=== PATIENT | female | born 1950 | race Caucasian/White ===

== ENCOUNTER → 2019-04-20 12:56 | Outpatient (CLI) | payer MEDICARE, OTHER, SELFPAY ==
--- NOTE | ~2019-04-20 | MM_ITS ---
EXAMINATION: MM screening reyna BI w emil HISTORY: Screening mammogram TECHNIQUE: Craniocaudal and mediolateral oblique 3-D tomosynthesis images were obtained and synthetic 2-D images were generated. CAD analysis was submitted and interpreted. COMPARISON: 04/13/2018, 04/11/2017, 03/31/2016 bilateral digital screening mammogram examinations BREAST PARENCHYMAL COMPOSITION: The breasts are heterogeneously dense, which may obscure small masses . FINDINGS: There is no evidence of suspicious mass, calcification, or architectural distortion to sugg est malignancy in either breast. There has been no suspicious interval change. IMPRESSION: 1. No mammographic evidence of malignancy. 2. Recommend routine screening mammography in one year. BI-RADS Category 1: Negative Reviewed, dictated and finalized at location A. ITURE DUSTER
--- NOTE | ~2019-04-20 | DEXA_ITS ---
Bone Density Report Name: Megha Humphreys Age: 68 Sex: Female Ethnicity: White Date of : 1950 Indication: postmenopausal; screening for osteoporosis; hysterectomy; Referring Provider: Iliana Cedeño Study: Bone densitometry was performed. Exam Date: April 20, 2019 Accession number: [id number] Bone Density: Region BMD T-score Z-score Classification AP Spine (L1-L4) 0.943 -0.9 1.0 Normal Femoral Neck (Left) 0.832 -0.2 1.5 Normal Total Hip (Left) 0.909 -0.3 1.1 Normal Femoral Neck (Right) 0.788 -0.5 1.1 Normal Total Hip (Right) 0.896 -0.4 1.0 Normal Total Hip Mean 0.903 -0.4 1.1 Normal World Health Organization criteria for BMD impression classify patients as: Normal (T-score at or above -1.0), Osteopenia (T-score between -1.0 and -2.5), or Osteoporosis (T-score at or below -2.5). 10-year Fracture Risk: FRAX not reported because: All T-scores for Spine Total, Hip Total, Femoral Neck at or above -1.0 Clinical Information Provided by Patient: Has the following medical conditions: Hysterectomy Patient maximum height was 63.0 Menopause Age: 40 Drinks caffeinated beverages Onset of menses at age 17 Number of children 2 Impression: The patient has normal bone mass. Discussion: BONE DENSITY IS ABOVE THE MINIMUM DESIRABLE LEVEL AT ALL SKELETAL SITES TESTED. This patient?s bone mineral density is above the minimum desirable level (T-score -1.0 or better) at all sites measured. The patient should follow a healthful lifestyle (good nutrition with adequate calcium and vitamin D, and appropriate weight-bearing exercise). Follow-Up: Consider repeating this study in 5 years or sooner if there is some new clinical indication. Reported by: ABILIO on 04/20/2019 1:43:00 PM. Reviewed, dictated and finalized at location AElin AGRAWAL
== END ==
PROVIDERS: PCP Family Medicine; Visit Provider Physician Assistant
DX: Z12.31 Encounter for screening mammogram for malignant neoplasm of breast (principal); M81.0 Age-related osteoporosis without current pathological fracture
CPT/HCPCS: 77063; 77067; 77080

== ENCOUNTER → 2020-04-21 10:19 | Outpatient (CLI) | payer MEDICARE, OTHER, SELFPAY ==
--- NOTE | ~2020-04-21 | MM_ITS ---
EXAMINATION: MM screening reyna BI w emil HISTORY: Screening mammogram TECHNIQUE: Craniocaudal and mediolateral oblique 3-D tomosynthesis images were obtained and synthetic 2-D images were generated. CAD analysis was submitted and interpreted. COMPARISON: 04/20/2019, 04/13/2018, 04/11/2017, 04/01/2016 bilateral digital screening mammogram examinati ons BREAST PARENCHYMAL COMPOSITION: The breasts are heterogeneously dense, which may obscure small masses . FINDINGS: There is no evidence of suspicious mass, calcification, or architectural distortion to sugg est malignancy in either breast. There has been no suspicious interval change. IMPRESSION: 1. No mammographic evidence of malignancy. 2. Recommend routine screening mammography in one year. BI-RADS Category 1: Negative Reviewed, dictated and finalized at location A. IT REVIEW ASSISTANT
== END ==
PROVIDERS: PCP Family Medicine; Visit Provider Family Medicine
DX: Z12.31 Encounter for screening mammogram for malignant neoplasm of breast (principal)
CPT/HCPCS: 77063; 77067

== ENCOUNTER → 2021-04-24 09:53 | Outpatient (CLI) | payer MEDICARE, SELFPAY ==
--- NOTE | ~2021-04-24 | MM_ITS ---
EXAMINATION: MM screening reyna BI w emil HISTORY: Screening TECHNIQUE: Craniocaudal and mediolateral oblique 3-D tomosynthesis images were obtained and synthetic 2-D images were generated. CAD analysis was submitted and interpreted. COMPARISON: Comparison to multiple prior studies sequentially, with oldest reviewed study dated 02/24. BREAST PARENCHYMAL COMPOSITION: The breasts are heterogeneously dense, which may obscure small masses . FINDINGS: Developing bilateral breast asymmetries. Possible architectural distortion of the left edi st. There are no suspicious calcifications. IMPRESSION: 1. Developing bilateral breast asymmetries with possible architectural distortion of the left breast. 2. Additional mammographic views and possible breast ultrasound are recommended. BI-RADS Category 0: Incomplete: Needs additional imaging evaluation. Reviewed, dictated and finalized at location A. TROLOGIST IMPRESSION: 1. Developing bilateral breast asymmetries with possible architectural distorti on of the left breast. 2. Additional mammographic views and possible breast ultrasound are recommended . BI-RADS Category 0: Incomplete: Needs additional imaging evaluation.
== END ==
PROVIDERS: PCP Family Medicine; Visit Provider Family Medicine
DX: Z12.31 Encounter for screening mammogram for malignant neoplasm of breast (principal); R92.8 Other abnormal and inconclusive findings on diagnostic imaging of breast
CPT/HCPCS: 77063; 77067

== ENCOUNTER → 2021-05-05 14:12 | Outpatient (CLI) | payer MEDICARE, OTHER, SELFPAY ==
--- NOTE | ~2021-05-05 | MMUS_ITS ---
EXAMINATION: MM diagnostic reyna BI w emil, US breast BI complete HISTORY: Developing bilateral mammographic asymmetries and left architectural distortion suggested on 04/24/2021 bilateral screening mammogram TECHNIQUE: Additional 3-D tomosynthesis images of both breasts were performed and synthetic 2-D image s were generated. CAD analysis was submitted and interpreted. High resolution bilateral complete edi st ultrasound including all four quadrants and subareolar areas was performed. COMPARISON: 04/24/2021, 04/21/2020, 04/20/2019, 04/13/2018 bilateral screening mammogram examinations FINDINGS: MAMMOGRAPHIC FINDINGS: There is suggestion of a 5 mm mass in the upper outer quadrant of the right breast on full field ML v iew (ML tomosynthesis ). Chronic stable circumscribed intramammary lymph node in the very posterior upper left breast on MLO v iew. No suspicious mass or architectural distortion, malignant calcification, skin thickening or retractio n or other significant new finding of either breast is noted otherwise. BILATERAL COMPLETE BREAST ULTRASOUND: Right breast: 10:00 7 cm from nipple: 2.5 x 2.7 mm irregular hypoechoic mass with internal vascularity on color fl ow imaging, suspicious for small malignancy. Ultrasound guided biopsy is recommended. Left breast: No suspicious mass or shadowing is detected. IMPRESSION: 1. Right breast 10:00 suspicious 2.7 mm mass. 2. Ultrasound guided biopsy is recommended. BI-RADS category 4, suspicious findings. Dr. Kirkpatrick telephoned Dr. Messer the report and ultrasound-guided biopsy recommendation on 05/05/2021 a t 1554 hours. Reviewed, dictated and finalized at location A. IMPRESSION: 1. Right breast 10:00 suspicious 2.7 mm mass. 2. Ultrasound guided biopsy is recommended. BI-RADS category 4, suspicious findings. Dr. Kirkpatrick telephoned Dr. Messer the report and ultrasound-guided biopsy recomme ndation on 05/05/2021 at 1554 hours.
== END ==
PROVIDERS: PCP Family Medicine; Visit Provider Family Medicine
DX: R92.8 Other abnormal and inconclusive findings on diagnostic imaging of breast (principal)
CPT/HCPCS: 76641; 77062; 77066; G0279

== ENCOUNTER 2021-05-15 08:55 | Outpatient (CLI) | payer MEDICARE, OTHER, SELFPAY ==
--- NOTE | ~2021-05-15 | MMUS_ITS ---
EXAMINATION: US breast biopsy RT w image, MM post biopsy invasive RT DATE: 05/15/2021 10:41 (accession [id number]), 05/15/2021 10:36 (accession [id number]) INDICATION: Indeterminate right breast mass. Ultrasound-guided core biopsy is requested to evaluate f or malignancy. TECHNIQUE AND FINDINGS: The risks and potential benefits of the procedure were discussed with the patient including bleeding and infection. A time out was performed. The skin of the right breast was prepared and draped in usua l sterile fashion. 1% lidocaine was used for superficial anesthesia. 1% lidocaine with epinephrine wa s used for deep anesthesia. A vacuum-assisted biopsy gun needle was advanced through to the outer edge of the region of interest from a lateral approach utilizing sonographic guidance. A total of three tissue core samples were obt ained through the lesion. A tissue marker clip was then placed at the biopsy site. Hemostasis was ach ieved. A sterile bandage was applied. The patient tolerated procedure well and there was no evidence of immediate complication. The patient was given verbal instructions to return to the Emergency Department in the event of severe breast pa in or rapid breast enlargement. A three view right breast mammogram was obtained to document tissue m arker clip placement. The marker is visualized on the exaggerated lateral craniocaudal view. IMPRESSION: 1. Successful ultrasound-guided vacuum-assisted biopsy of right breast mass with tissue marker placem ent. Reviewed, dictated and finalized at location A. IMPRESSION: 1. Successful ultrasound-guided vacuum-assisted biopsy of right breast mass wit h tissue marker placement.
== END 2021-05-15 08:56 | disposition home or self-care (01) ==
PROVIDERS: PCP Family Medicine; Visit Provider Family Medicine
DX: R92.8 Other abnormal and inconclusive findings on diagnostic imaging of breast (principal)
CPT/HCPCS: 19083; 88305; A4648

== ENCOUNTER → 2021-06-12 10:03 | Outpatient (CLI) | payer MEDICARE, SELFPAY ==
--- NOTE | ~2021-06-12 | DEXA_ITS ---
Bone Density Report Name: CELIO RUBIO Age: 71 Sex: Female Ethnicity: White Date of : 1950 Indication: postmenopausal; screening for osteoporosis; hysterectomy; Referring Provider: Iliana Cedeño Study: Bone densitometry was performed. Exam Date: June 12, 2021 Accession number: [id number] Bone Density: Region BMD T-score Z-score Classification AP Spine (L1-L4) 0.914 -1.2 0.9 Osteopenia Femoral Neck (Left) 0.804 -0.4 1.4 Normal Total Hip (Left) 0.878 -0.5 1.0 Normal Femoral Neck (Right) 0.790 -0.5 1.3 Normal Total Hip (Right) 0.868 -0.6 0.9 Normal Total Hip Mean 0.873 -0.6 1.0 Normal World Health Organization criteria for BMD impression classify patients as: Normal (T-score at or above -1.0), Osteopenia (T-score between -1.0 and -2.5), or Osteoporosis (T-score at or below -2.5). 10-year Fracture Risk(1): Major Osteoporotic Fracture 7.3% Hip Fracture 0.6% Reported Risk Factors: [place] (), Neck BMD=0.790, BMI=21.7 (1) FRAX(R) Version 3.08. Fracture probability calculated for an untreated patient. Fracture probability may be lower if the patient has received treatment. Previous Exams: Region Exam Age BMD T-score BMD Change BMD Change Date g/cm2 vs Baseline vs Previous AP Spine(L1-L4) 06/12/2021 71 0.914 -1.2 -0.030* -0.030* 04/20/2019 68 0.943 -0.9 Total Hip(Left) 06/12/2021 71 0.878 -0.5 -0.031* -0.031* 04/20/2019 68 0.909 -0.3 Total Hip(Right) 06/12/2021 71 0.868 -0.6 -0.029* -0.029* 04/20/2019 68 0.896 -0.4 *Denotes significance at 95% confidence level, LSC for AP Spine = 0.022 g/cm2, LSC for Total Hip = 0.027 g/cm2 Clinical Information Provided by Patient: Has the following medical conditions: Hysterectomy Patient maximum height was 63.0 Menopause Age: 40 Drinks caffeinated beverages Onset of menses at age 17 Number of children 2 Impression: The patient has low bone mass, based on the Total Spine T-score. The patient has an estimated ten-year risk of hip fracture of 0.6% and an estimated ten-year risk of major fracture of 7.3%, based on the WHO FRAX algorithm. The BMD for the AP Spine(L1-L4) decreased, changing by -0.030 since the last DXA exam. The BMD for the Total Hip(Left) decreased, changing by -0.031 since the last DXA exam. The BMD for the Total Hip(Right) decreased, changing by -0.029 since the last DXA exam. Discussi
== END ==
PROVIDERS: PCP Family Medicine; Visit Provider Physician Assistant
DX: Z78.0 Asymptomatic menopausal state (principal); M85.88 Other specified disorders of bone density and structure, other site
CPT/HCPCS: 77080

== ENCOUNTER 2021-11-05 07:36 | Inpatient (IN) | payer MEDICARE, OTHER, SELFPAY ==
[2021-11-05] VITALS (49 sets, daily range): BP systolic 101–137; BP diastolic 51–69; PULSE 69–90; RESP 14–39; TEMP 36.4–37.1; O2SAT 61–100; BMI 19.1
--- NOTE | 2021-11-05 | ECHO_ITS ---
Patient Info Name: Megha Humphreys Age: 71 years : 1950 Gender: Female Ht: 63 in Wt: 115 lbs BSA: 1.52 m2 HR: 74 bpm BP: 129 / 66 mmHg Heart Rhythm: Sinus Rhythm Technical Quality: Good Exam Date: 11/05/2021 2:31 PM Exam Location: [facility] Exam Room: ICU8 Patient Status: Inpatient Admit Date: 11/05/2021 Staff Ordering Physician: Bradley Nava MD Filler And Trimmer: Bre Oliveira RDCS Attending Provider: Magdaleno Guy MD Exam Type: CA echo doppler color flow Study Info Indications - PE CHF Complete two-dimensional, color flow and Doppler transthoracic echocardiogram is performed. Summary 1. Complete two-dimensional, color flow and Doppler transthoracic echocardiogram is performed. 2. Normal left ventricular size with good contractility of all segments. Mild septal hypertrophy noted. Ejection fraction 65-70%. Grade 2 diastolic dysfunction is present. Mild septal hypertrophy is noted. Global longitudinal strain is-17%, borderline. 3. There is mild mitral valve regurgitation. 4. No pulmonary hypertension, estimated pulmonary arterial systolic pressure is 33 mmHg. 5. Normal sinus rhythm. Left Ventricle Left ventricular chamber dimension is normal. Left ventricular systolic function is normal, estimated at 65-70%. There is no increased left ventricular wall thickness. Left ventricular septal wall motion is normal. The left ventricular diastolic function is normal. Right Ventricle Right ventricular chamber dimension is normal. Right ventricular systolic function is normal. Left Atria Left atrial chamber dimension is normal. Right Atria Right atrial chamber dimension is normal. Aortic Valve The aortic valve is trileaflet. There is no aortic valve sclerosis. There is no aortic valve stenosis. There is trace aortic valve regurgitation. Pulmonic Valve The pulmonic valve is normal. There is no pulmonic valve stenosis. There is trace pulmonic regurgitation. Mitral Valve The mitral valve has normal leaflets. There is no mitral valve stenosis. There is mild mitral valve regurgitation. Tricuspid Valve The tricuspid valve leaflets are normal. There is no significant tricuspid valve stenosis. There is trace tricuspid valve regurgitation. No pulmonary hypertension, estimated pulmonary arterial systolic pressure is 33 mmHg. Pericardium/Pleural The pericardium appears normal. There is no pericardial effusion. Inferior Vena Cava Normal inferior vena cava with >50% collapse upon inspiration consistent with Empty right atrial pressure, 5 mmHg. Aorta The aortic root size at the sinus of Valsalva is normal. The prox ascending aorta size is normal. Left Ventricular Outflow Tract Name Value Normal LVOT 2D LVOT Diameter 2.0 cm LVOT Doppler LVOT Peak Gradient 3 mmHg LVOT Mean Gradient 2 mmHg LVOT VTI 17 cm LVOT VTI/AV VTI Ratio 0.8 LVOT Stroke Volume 53 ml LVOT CO
--- NOTE | ~2021-11-05 | CT_ITS ---
EXAMINATION: CTA chest PE protocol DATE: 11/05/2021 08:47 INDICATION: Dyspnea. TECHNIQUE: Computed tomography angiography (CTA) of the chest was performed with 100 mL Omnipaque-350 intravenous contrast timed to evaluate the pulmonary arteries. Coronal maximum intensity projection 3D-reconstructions were created by the technologist. Automated exposure control and iterative reconst ruction technique were employed. The dose-length product was 179.58 mGy-cm. COMPARISON: None. FINDINGS: There are small pleural effusions, left worse than right. There are airspace and interstiti al opacities and septal thickening involving all lobes with relative sparing of the peripheral lower lobes with architectural distortion. The heart size is normal. No pericardial effusion. There are sma ll pulmonary emboli in right lower lobe. There is a compression fracture of T8 with 1/5 loss of heigh t. IMPRESSION: 1. Small pulmonary emboli in right lower lobe. I called this result to Dr. Thompson. 2. Diffuse lung disease, consistent with pulmonary edema versus pneumonia. 3. Small pleural effusions. Reviewed, dictated and finalized at location A. IMPRESSION: 1. Small pulmonary emboli in right lower lobe. I called this result to Dr. Thompson . 2. Diffuse lung disease, consistent with pulmonary edema versus pneumonia. 3. Small pleural effusions.
--- NOTE | ~2021-11-05 | XR_ITS ---
XR chest ET placement 11/07/2021 12:19 Indication: OG tube insertion Procedure: AP portable chest Comparison: Comparison to multiple prior studies sequentially, with oldest reviewed study dated 11/05. Findings: Endotracheal tube tip 2.7 cm above the philly. NG tube in the stomach. PICC line tip in the SVC. Diffuse bilateral airspace disease, compatible with edema. No pleural effusion or pneumothorax. No acute osseous abnormality. Impression: 1: Persistent diffuse bilateral airspace disease, compatible with edema. Reviewed, dictated and finalized at location A. Impression: 1: Persistent diffuse bilateral airspace disease, compatible with edema.
--- NOTE | ~2021-11-05 | CT_ITS ---
EXAMINATION: CT abdomen pelvis wo con DATE: 11/05/2021 10:58 INDICATION: Recent colectomy, colostomy TECHNIQUE: Computed tomography (CT) of the abdomen and pelvis was performed without intravenous contr ast. (Patient had earlier CT pulmonary scan today with IV contrast material). Automated exposure cont rol and iterative reconstruction technique were employed. Exam dose: 185.57 mGy-cm total exam DLP. COMPARISON: 11/05/2021 CT pulmonary scan FINDINGS: Extensive bilateral pulmonary infiltrates are noted as well as mild to moderate left pleura l effusion, minimal right pleural effusion. Heart size is within normal range. There is trace pericar dial fluid. Small sliding hiatal hernia. Nonspecific approximately 4.7 and 7 mm hypoattenuating lesions of the lateral segment left hepatic l obe, possibly small cyst. The liver is otherwise unremarkable. No gallbladder wall thickening or pericholecystic fluid or fat stranding. No bile duct or pancreatic duct dilatation. No pancreatic mass lesion or calcification. The spleen is absent. Normal morphology of the adrenal glands. No renal mass lesion or urinary tract calculus or hydroureteronephrosis is evident. The urinary bladd er is unremarkable. No bladder wall thickening or intraluminal filling defect. Status post hysterectomy. There is atherosclerotic calcification but normal caliber of the abdominal aorta. No intraperitoneal or retroperitoneal or pelvic mass lesion or adenopathy or ascites is detected. Partial left colectomy. There is a left colostomy. No bowel obstruction or intraperitoneal free air i s evident. No suspicious osteolytic or osteoblastic lesions. IMPRESSION: Partial left colectomy with left colostomy; no bowel obstruction or free air Status post hysterectomy Small sliding hiatal hernia 7 and 4 mm nonspecific small hypoattenuating left lateral segment hepatic lesions, too small to defin itively characterize Extensive bilateral pulmonary infiltrates and bilateral pleural effusions, left greater than right Reviewed, dictated and finalized at Location A. Reviewed, dictated and finalized at location B. IMPRESSION: Partial left colectomy with left colostomy; no bowel obstruction o r free air Status post hysterectomy Small sliding hiatal hernia 7 and 4 mm nonspecific small hypoattenuating left lateral segment hepatic lesio ns, too small to definitively characterize Extensive bilateral pulmonary infiltrates and bilateral pleural effusions, left greater than right
--- NOTE | ~2021-11-05 | XR_ITS ---
XR chest 1V portable DATE: 11/05/2021 09:13 INDICATION: Dyspnea TECHNIQUE: Portable AP chest on 11/05/2021 at 0907 hours COMPARISON: 11/05/2021 CT pulmonary scan FINDINGS: Extensive patchy infiltrates are noted throughout both lungs, which may be due to pulmonary edema and/or pneumonia. Heart size appears normal. The left costophrenic angle is minimally blunted suggesting small left ple ural effusion which is confirmed on CT examination today. Mild bilateral apical capping. No pneumothorax. Diffuse osteopenia. IMPRESSION: Extensive bilateral pulmonary infiltrates which may be due to pulmonary edema and/or pneu monia Reviewed, dictated and finalized at location B. IMPRESSION: Extensive bilateral pulmonary infiltrates which may be due to pulmo nary edema and/or pneumonia
--- NOTE | ~2021-11-05 | US_ITS ---
EXAMINATION: US venous doppler [facility] DATE: 11/05/2021 10:28 INDICATION: Acute pulmonary bladder. TECHNIQUE: Grayscale ultrasound images without and with compression and Doppler ultrasound images of the bilateral lower extremity veins were obtained. COMPARISON: None. FINDINGS: The visualized portions of right common femoral vein, profunda (deep) femoral vein, femoral vein, pop liteal vein, peroneal veins, posterior tibial veins, and greater saphenous vein outflow are patent. The visualized portions of left common femoral vein, profunda femoral vein, popliteal vein, peroneal veins, posterior tibial veins, and greater saphenous vein outflow are patent. There is nonocclusive t hrombus in left femoral vein. IMPRESSION: 1. Deep vein thrombosis involving left femoral vein. Reviewed, dictated and finalized at location A.
--- NOTE | ~2021-11-05 | XR_ITS ---
XR chest 1V portable 11/07/2021 06:03 Indication: Respiratory failure Procedure: AP portable chest Comparison: Comparison to multiple prior studies sequentially, with oldest reviewed study dated 11/05. Findings: Left subclavian PICC line tip in the SVC. There is improving diffuse bilateral airspace dis ease, most likely resolving edema. No significant effusion or pneumothorax. No acute osseous abnormal ity. Impression: 1: Improving diffuse bilateral airspace disease, most likely resolving edema. Reviewed, dictated and finalized at location A. Impression: 1: Improving diffuse bilateral airspace disease, most likely resolving edema.
--- NOTE | ~2021-11-05 | XR_ITS ---
EXAMINATION: XR chest PICC line DATE: 11/06/2021 09:46 INDICATION: Central line placement. TECHNIQUE: A single frontal view of the chest was obtained. COMPARISON: Chest single view at 5:50 AM FINDINGS: There are airspace and interstitial opacities throughout the lungs bilaterally. There is a small left pleural effusion. No pneumothorax. The heart size is normal. A left upper extremity periph erally inserted central venous catheter (PICC) is seen with tip in the superior vena cava. IMPRESSION: 1. Stable diffuse lung disease, consistent with pulmonary edema versus pneumonia versus acute respira tory distress syndrome (ARDS). 2. Stable small left pleural effusion. Reviewed, dictated and finalized at location A. IMPRESSION: 1. Stable diffuse lung disease, consistent with pulmonary edema versus pneumoni a versus acute respiratory distress syndrome (ARDS). 2. Stable small left pleural effusion.
--- NOTE | ~2021-11-05 | XR_ITS ---
XR abdomen OG/feed tube insert INDICATION: Evaluate OG tube position. TECHNIQUE: Limited KUB perform for evaluating OG tube . COMPARISON: No prior studies for comparison. FINDINGS: OG tube tip in the stomach. Visualized bowel gas pattern is unremarkable. IMPRESSION: 1: OG tube tip in the stomach. Reviewed, dictated and finalized at location A.
--- NOTE | ~2021-11-05 | XR_ITS ---
EXAMINATION: XR chest 1V portable DATE: 11/06/2021 05:58 INDICATION: Respiratory failure. TECHNIQUE: A single frontal view of the chest was obtained. COMPARISON: Chest single view 11/05/2021 FINDINGS: There are airspace and interstitial opacities in all lung zones bilaterally. There is a sma ll left pleural effusion. No pneumothorax. The heart size is normal. IMPRESSION: 1. Stable diffuse lung disease, consistent with pulmonary edema versus pneumonia versus acute respira tory distress syndrome (ARDS). 2. Stable small left pleural effusion. Reviewed, dictated and finalized at location A. IMPRESSION: 1. Stable diffuse lung disease, consistent with pulmonary edema versus pneumoni a versus acute respiratory distress syndrome (ARDS). 2. Stable small left pleural effusion.
--- NOTE | 2021-11-05 07:43 | ECG_ITS ---
Measurements Intervals [place] Rate: 77 P: 27 MT: 122 QRS: 25 QRSD: 71 T: 39 QT: 383 QTc: 435 Interpretive Statements SINUS RHYTHM VENTRICULAR PREMATURE COMPLEX BASELINE ARTIFACT- V1 BORDERLINE ECG NO PREVIOUS ECG AVAILABLE FOR COMPARISON Electronically Signed On 11-05-2021 8:03:46 CDT by Jsoe Guthrie D.O.
--- NOTE | 2021-11-05 07:49 | PC.NURSE ---
RT at bedside to place patient on BIPAP>
[2021-11-05 08:02] LABS: Basophils Percent Auto 0.4 % (0.2-1.2); Hematocrit 30.1 % (37.0-47.0); Hemoglobin 9.6 g/dL (12.0-15.0); Immature Granulocyte Percent A 2.1 % (0-0.5); Lymphocytes Absolute Auto 0.39 K/mm3 (0.9-3.2); Mean Corpuscular HGB Conc 31.9 g/dl (32-36); Mean Corpuscular Hemoglobin 32.1 pg (26-34); Mean Corpuscular Volume 100.7 fl (80-100); Monocytes Absolute Auto 0.1 K/mm3 (0.1-0.6); Monocytes Percent Auto 1.4 % (2.6-8.5); Neutrophils Absolute Auto 4.3 K/mm3 (1.3-6.7); Neutrophils Percent Auto 88.1 % (45.5-73.1); Nucleated Red Blood Cells Absolute Auto 0.3 K/mm3 (0.0-0.012); Nucleated Red Blood Cells Perc 6.8 % (0.0-0.2); Platelet Count Result 246 k/mm3 (150-375); Red Blood Count 2.99 M/mm3 (4.2-5.4); Red Cell Distribution Width 19.6 % (11.5-14.5); White Blood Count 4.9 K/mm3 (4.5-10.0)
[2021-11-05 08:03] LABS: Base Excess ABG -3.3 mEq/l (+/-2.0); Fractional Inspired Oxygen 80 %; HCO3 ABG 19.1 mEq/l (22.0-26.0); Oxygen Saturation ABG 98.4 % (95.0-100.0); Oxyhemoglobin 96.8 % THb (90.0-100.0); PCO2 ABG 25.6 mmHg (35.0-45.0); PO2 ABG 108.5 mmHg (80.0-100.0); PO2 FiO2 Ratio Arterial Blood 1.36 %; Total Hemoglobin 9.4 g/dL (12.0-18.0)
[2021-11-05 08:04] LABS: Device NON-INVASIVE VENT; Modified Allen's Test Pass; Site Drawn RIGHT RADIAL
[2021-11-05 08:05] LABS: Non-Invasive Expiratory Pressure 5 CMH2O; Non-Invasive Inspiratory Pressure 10 CMH2O; Non-Invasive Vent Rate 18 /MIN
[2021-11-05 08:15] LABS: Alanine Aminotransferase 28 U/L (6-35); Albumin Level 2.7 g/dL (3.5-5.1); Alkaline Phosphatase 82 U/L (38-126); Anion Gap 10 mmol/L (8-16); Aspartate Amino Transferase 38 U/L (14-36); Bilirubin,Total 0.2 mg/dL (0.2-1.3); Blood Urea Nitrogen 27 mg/dL (7-17); Calcium 7.2 mg/dL (8.4-10.2); Carbon Dioxide 23 mmol/L (22-30); Chloride 104 mmol/L (98-107); Estimated CRCL calculation 42 ml/min; Estimated Glomerular Filt Rate > 60; Glucose 98 mg/dL (65-110); Lipase 87 U/L (23-300); Magnesium 2.4 mg/dL (1.6-2.3); Potassium 4.7 mmol/L (3.4-5.0); Sodium 137 mmol/L (137-145)
[2021-11-05 08:16] LABS: Lactic Acid Reflex 3.1 mmol/L (0.7-2.0)
[2021-11-05 08:20] LABS: INR 1.1; Prothrombin Time 14.2 Seconds (11.1-14.7)
[2021-11-05 08:21] LABS: Partial Thromboplastin Time 26.2 SECONDS (22.3-36.8)
[2021-11-05 08:31] LABS: NT Pro B Type Natriuretic Pept 2920 pg/mL (5-100); Troponin I 0.071 ng/mL (0.000-0.034)
[2021-11-05 08:42] LABS: Anisocytosis 2+ (NORMAL); Band Neutrophils Percent 12 % (0-6); Giant Platelets Present; Hypochromasia 1+ (NORMAL); Large Platelets Present; Lymphocytes Absolute Manual 0.19 K/mm3 (1.1-4.5); Microcytosis 1+ (NORMAL); Monocytes Absolute Manual 0.14 K/mm3 (0.1-0.90); Monocytes Percent Manual 3 % (3-9); Neutrophils Absolute Manual 4.55 K/mm3 (1.7-7.2); Neutrophils Percent Manual 81 % (46-73); Nucleated Red Blood Cells 22 %; Platelet Estimate Adequate (Adequate); Poikilocytosis 2+ (NORMAL); Total Cells Counted 100
[2021-11-05 08:44] LABS: Schistocytes 1+ (NORMAL)
[2021-11-05 09:18] LABS: Influenza A QL RT-PCR Negative (Negative); Influenza B QL RT-PCR Negative (Negative); SARS-CoV-2 RNA PCR Negative
--- NOTE | 2021-11-05 09:43 | WPDCNINT ---
Assessment and Plan Assessment and plan (1) Acute respiratory failure: Code(s): J96.00 - Acute respiratory failure, unspecified whether with hypoxia or hypercapnia Status: Acute Assessment and Plan: Acute Respiratory failure which appears to be multifactorial with complicated recent history It appears patient has PJP pneumonia which was diagnosed on her hospitalization at [facility] Her BAL also grew CMV and HSV She has a small PE on her CT scan Her clinical picture suggests congestive heart failure with elevated BNP, edema in light, orthopnea She may also have another bacterial infection Patient is currently on BiPAP 10/5 and FiO2 has been weaned down to 50%. I have reviewed CT scan, ABG I requested ER physician to to attempt to transfer patient to [facility] due to her recent complicated history and multiple admissions at that hospital. In case patient is not transferred I will admit her to ICU Blood cultures have been sent procalcitonin level is pending Empiric vancomycin and cefepime Continue Bactrim for PJP pneumonia and will be switched to IV Continue HSV and CMV treatment with valacyclovir IV Consult pulmonary. We do not have infectious disease consultation available here at [facility] IV methylprednisolone Bronchodilators If her respiratory status worsened patient may need intubation mechanical ventilation Lovenox subQ for PE Patient was given Lasix IV does and will be repeated later in the day (2) Pneumonia: Code(s): J18.9 - Pneumonia, unspecified organism Status: Acute (3) Pulmonary edema: Code(s): J81.1 - Chronic pulmonary edema Status: Acute Assessment and Plan: See above (4) Pulmonary embolism: Code(s): I26.99 - Other pulmonary embolism without acute cor pulmonale Status: Acute Assessment and Plan: She has a small PE. Lower extremity Dopplers ordered and preliminary suggests that there may be DVT in the left leg Patient is already on anticoagulation so I am not sure if patient was already diagnosed with DVT at the other hospital Switched to Lovenox subQ Check echocardiogram Lower extremity Dopplers were done and pending (5) Pneumocystis jiroveci pneumonia: Code(s): B59 - Pneumocystosis Status: Acute Assessment and Plan: See above (6) Elevated troponin: Code(s): R77.8 - Other specified abnormalities of plasma proteins Status: Acute Assessment and Plan: Patient has elevated troponin denies any chest pain and EKG does not show any ST elevation This is likely type 2 non STEMI from her respiratory failure, PEand infection Monitor serial troponin She is already anticoagulated. 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 Still has open incision under dressing. denies any purulent discharge from incision at this time. Will obtain CT abdomen pelvis (11) Diabetes mellitus: Code(s): E11.9 - Type 2 diabetes mellitus without complications Status: Acute Assessment and Plan: Patient and were unaware that she has diabetes low patient is on insulin at home as per her med list. Start sliding scale at this time She is NPO Plan DVT prophylaxis -on therapeutic Lovenox Stress ulcer prophylaxis -at PPI Nutrition -
[2021-11-05] MEDS: FUROSEMIDE INJ 40 MG/4 ML VIAL IV PUSH ×2 (09:52→15:40)
[2021-11-05 10:14] LABS: Appearance Urine Clear (Clear); Bilirubin Urine Negative (Negative); Blood Urine Negative (Negative); Color Urine Yellow (Yellow); Glucose Urine UA Negative (Negative); Ketones Urine Negative (Negative); Leukocyte Esterase Ur Negative LEU/UL (Negative); Nitrate Urine Negative (Negative); Protein Urine Negative (Negative); Urobilinogen Urine 0.2 mg/dL (<2.0); pH Urine 7.5 (5.0-9.0)
[2021-11-05 10:23] LABS: Add Urine Microscopic? NO
[2021-11-05] MEDS: ENOXAPARIN 60 MG/0.6 ML SYRINGE 50 MG SUB-Q ×2 (10:23→20:38)
--- NOTE | 2021-11-05 10:27 | ED.GENADULT ---
HPI - General Adult General Chief complaint: Shortness of Breath/Dyspnea Stated complaint: SOB, weakness Time Seen by Provider: 11/05/21 07:39 History of Present Illness HPI narrative: This is a 71-year-old female presenting ED with shortness of breath. Patient has had a complicated clinical course over the last 2 months. on August 02 she had diverticulitis that resulted in a colectomy with colostomy bag. Since then she has been in and out of the hospital. Most recently she was discharged from [facility] on Tuesday with a diagnosis of pneumonia. Since then she has not been doing well at home. She has been having increasing shortness of breath and lower extremity edema. Related Data Home Medications Medication Instructions Recorded Confirmed alprazolam 0.25 mg tablet 0.25 mg PO DAILY PRN Anxiety 11/05/21 11/05/21 aspirin 81 mg capsule 81 mg PO DAILY 11/05/21 11/05/21 calcium carbonate 500 mg-vitamin 1 tablet PO DAILY 11/05/21 11/05/21 D3 5 mcg (200 unit) tablet escitalopram oxalate 10 mg tablet 10 mg PO DAILY 11/05/21 11/05/21 ferrous sulfate 325 mg (65 mg 325 mg PO DAILY 11/05/21 11/05/21 iron) tablet (FeroSul) folic acid 1 mg tablet 1 mg PO DAILY 11/05/21 11/05/21 furosemide 20 mg tablet 20 mg PO DAILY 11/05/21 11/05/21 insulin glargine-yfgn 100 unit/mL 7 unit subcut HS 11/05/21 11/05/21 (3 mL) subcutaneous pen (Semglee (insulin glargine-yfgn) Pen) magnesium oxide 400 mg (241.3 mg 400 mg PO BID 11/05/21 11/05/21 magnesium) tablet metformin 500 mg tablet 1,000 mg PO BID 11/05/21 11/05/21 metoprolol succinate 25 mg 12.5 mg PO DAILY 11/05/21 11/05/21 tablet,extended release 24 hr pantoprazole 40 mg tablet,delayed 40 mg PO QAM 11/05/21 11/05/21 release potassium chloride 10 mEq 10 meq PO DAILY 11/05/21 11/05/21 capsule,extended release prednisone 10 mg tablet 35 mg PO DAILY 11/05/21 11/05/21 ramelteon 8 mg tablet 8 mg PO HS PRN Insomnia 11/05/21 11/05/21 simvastatin 20 mg tablet 20 mg PO HS 11/05/21 11/05/21 sulfamethoxazole 800 2 tablet PO TID 11/05/21 11/05/21 mg-trimethoprim 160 mg tablet timolol 0.5 % eye drops 1 drp EACH EYE BID 11/05/21 11/05/21 valganciclovir 450 mg tablet 900 mg PO BID 11/05/21 11/05/21 Allergies Allergy/AdvReac Type Severity Reaction Status Date / Time No Known Allergies Allergy Unverified 09/25/18 10:59 Review of Systems Review of Systems: CONSTITUTIONAL: Denies night sweats. EYES: No eye pain ENT: Denies rhinorrhea CARDIOVASCULAR: Denies palpitations RESPIRATORY: Denies hemoptysis GASTROINTESTINAL: Denies hematemesis GENITOURINARY: Denies hematuria. SKIN: Denies rash MUSCULOSKELETAL: Denies myalgia. NEUROLOGIC: Denies weakness. PSYCHIATRIC: Denies delusions [facility] Past Medical History Medical History (Updated 11/05/21 @ 15:19 by Chintan Thompson MD) Blindness of left eye CMV infection Colostomy in place Diabetes mellitus Diverticulitis HSV (herpes simplex virus) infection Pneumocystis jiroveci pneumonia Stroke Surgical History Surgical History (Updated 11/05/21 @ 10:47 by Bradley Nava MD) H/O colectomy Family History Family History Sibling Non-Hodgkin lymphoma Mother Diabetes mellitus Father Colon cancer Social History Social History Social History: Patient denies smoking, drinks alcohol occasional, denies any drug use. 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 EYES: PERRLA/EOMI, NOSE: Normal no drainage NECK: Supple, Trachea midline RESPIRATORY: tachypneic, scattered rhonchi, using accessory muscles CARDIOVASCULAR: S1S2 appreciated, tachycardic, lower extremity edema ABDOMINAL: Soft, nontender, nondistended, MUSCULOSKELETAl: No obvious deformities NEURO: Alert. Moving 4/4 extremities
--- NOTE | 2021-11-05 10:30 | PC.NURSE ---
Snowboarding Instructor at bedside to assess pt.
--- NOTE | 2021-11-05 10:46 | PC.NURSE ---
Patient off unit to CT.
[2021-11-05 10:58] LABS: Reflex Lactic Acid Yes or No Add Lactic
--- NOTE | 2021-11-05 11:10 | PC.NURSE ---
Pharmacy contacted for JOSELITO Min.
--- NOTE | 2021-11-05 11:26 | PC.NURSE ---
Patient report given to WILLY Quispe. All questions answered and care of patient transferred.
--- NOTE | 2021-11-05 12:50 | ADMGEN ---
This patient, Megha Humphreys, was admitted to Intensive Care Unit-8. Patient/family oriented to hospital policies and general routines including ID bracelet, bed and alarms, visiting hours, pain management, procedures, bathroom and other care routines, personal items, smoking policy, room service/diet, and visiting hours. Information on how to activate the Rapid Response Team has been discussed. Patient/Family are encouraged to report perceived risks to care and to ask questions if they do not understand what they are told or what they should do.
[2021-11-05] MEDS: methylPREDNISolone SOD SUCC 40 MG VIAL IV PUSH ×2 (13:09→20:37)
[2021-11-05 13:15] LABS: Glucose Point of Care 128 mg/dl (65-105)
[2021-11-05 13:40] LABS: Lactic Acid 2.6 mmol/L (0.7-2.0)
[2021-11-05 14:15] LABS: Troponin I 0.075 ng/mL (0.000-0.034)
[2021-11-05] MEDS: IPRATROPIUM BR 0.02% INH SOLN 0.5 MG/2.5 ML VIAL INHALATION ×2 (14:49→20:02)
[2021-11-05] MEDS: ALBUTEROL SULFATE NEB 2.5 MG/3 ML INH INHALATION ×2 (14:49→20:02)
--- NOTE | 2021-11-05 15:16 | PM.IMHP ---
H&P: HPI History of Present Illness Date/Time: 11/05/21 15:16 Chief Complaint: Shortness of breath Narrative: This is a 71-year-old female patient who was just discharged from [facility] on Tuesday and was diagnosed with pneumonia. The patient had a complicated clinical course over the last 2 months. On she had a diverticulitis required a colectomy with a colostomy bag. She has been in and out of the hospital since then. The patient has been having lower extremity edema and shortness of breath since she was discharged from [facility] Tuesday. She was recently diagnosed with PjP pneumonia she also has a small PE on her CT scan. 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 She continues with treatment. she was placed on a BiPAP in the emergency room with 10/5 and FiO2 was weaned down to 50%. However the patient became nauseated and it was felt that the patient could possibly vomit so she was placed on high-flow nasal cannula Airvo and appears to be doing well with it. When I went to examine her the patient's O2 saturations were down in the 80s and I did not want her to exert herself. The patient's O2 saturations quickly went up to the 90s when she was placed on Airvo. Most of information was obtained from her records. The patient is in ICU awaiting bed transfer to [facility]. Her H&H is 9.6 and 30.1. MCV is high at 10.7. ABGs pH was 7.490. CO2 was 25.6 O2 was 108.5. Her blood glucose is 128. Lactic initially was 3.1 and came down to 2.6. Troponin was 0.07 and repeat was 0.075. BNP 2920. The patient was started on subcu Lovenox, nebulizer treatments, Solu-Medrol, cefepime, vancomycin and Bactrim. She was also given IV Lasix once. Venous Doppler was read as deep vein thrombosis involving left femoral vein. Abdominal pelvis CT was read as the following?Partial left colectomy with left colostomy; no bowel obstruction or free air Status post hysterectomy Small sliding hiatal hernia 7 and 4 mm nonspecific small hypoattenuating left lateral segment hepatic lesions, too small to definitively characterize Extensive bilateral pulmonary infiltrates and bilateral pleural effusions, left greater than right. Chest x-ray was read as extensive bilateral pulmonary infiltrates which may be due to pulmonary edema and/or pneumonia. Chest CTA was read as the following1. Small pulmonary emboli in right lower lobe. I called this result to Dr. Thompson. 2. Diffuse lung disease, consistent with pulmonary edema versus pneumonia. 3. Small pleural effusions. The patient is being admitted to inpatient status to ICU on the date of service of 11/05/2021. Review of Systems Review of Systems: See HPI All systems reviewed & are unremarkable except as noted in HPI and below Constitutional: Constitutional: Reports as per HPI and Reports no additional constitutional complaints Eyes: Eyes: Reports as per HPI and Reports no additional eye complaints ENT: Reports system reviewed and no additional complaints, except as documented and Reports Normal hearing present Cardiovascular: Cardiovascular: Reports no additional cardiovascular complaints Respiratory: Respiratory: Reports no additional respiratory complaints and Reports no additional respiratory complaints Gastrointestinal: Gastrointestinal: Reports as per HPI and Reports no additional gastrointestinal complaints Musculoskeletal: Musculoskeletal: Reports no additional musculoskeletal complaints Integumentary/Breasts: Skin/Breast: Reports system reviewed and no additional complaints, except as docu and Reports as per HPI Neurologic: Reports system reviewed and no additional complaints, except as documented, Reports as per HPI and Reports Normal hearing present Psychiatric: Psychiatric: Reports no additional psychiatric complaints and Reports as per HPI Endocrine: Endocrine: Reports no additional endocrine complaints Hematologic/Lymphatic: Hematologic/Lymphatic:
--- NOTE | 2021-11-05 15:34 | PHAR ---
PT'S HOME MED VALCYTE 450 MG (VALGANCICLOVIR) TABS VERIFIED BY PHARMACY
[2021-11-05 15:40] LABS: Glucose Point of Care 156 mg/dl (65-105)
[2021-11-05 15:46] LABS: Procalcitonin 0.3 ng/mL
[2021-11-05] MEDS: MAGNESIUM OXIDE 400 MG TABLET PO (16:44)
[2021-11-05 18:06] LABS: Anion Gap 10 mmol/L (8-16); Blood Urea Nitrogen 27 mg/dL (7-17); Calcium 7.3 mg/dL (8.4-10.2); Carbon Dioxide 26 mmol/L (22-30); Chloride 98 mmol/L (98-107); Estimated CRCL calculation 36 ml/min; Estimated Glomerular Filt Rate 55; Glucose 144 mg/dL (65-110); Potassium 4.4 mmol/L (3.4-5.0); Sodium 134 mmol/L (137-145)
[2021-11-05] MEDS: ACETAMINOPHEN 325 MG TABLET 650 MG PO (18:15)
[2021-11-05 18:27] LABS: Troponin I 0.067 ng/mL (0.000-0.034)
[2021-11-05] MEDS: TIMOLOL MALEATE 0.5% OP SOLN 5 ML BOTTLE 1 DROP EACH EYE (20:38)
[2021-11-05] MEDS: INSULIN GLARGINE (*BKC) 100 UNITS/ML 7 UNITS SUB-Q (20:50)
[2021-11-05 20:54] LABS: Glucose Point of Care 209 mg/dl (65-105)
[2021-11-06] VITALS (26 sets, daily range): BP systolic 105–139; BP diastolic 56–84; PULSE 69–102; RESP 16–29; TEMP 36.4–37.1; O2SAT 90–100; BMI 19.5
[2021-11-06 00:03] LABS: Glucose Point of Care 153 mg/dl (65-105)
[2021-11-06] MEDS: ALBUTEROL SULFATE NEB 2.5 MG/3 ML INH INHALATION ×4 (02:05→20:10)
[2021-11-06] MEDS: IPRATROPIUM BR 0.02% INH SOLN 0.5 MG/2.5 ML VIAL INHALATION ×4 (02:05→20:10)
[2021-11-06] MEDS: ONDANSETRON INJ 4 MG/2 ML VIAL IV PUSH (02:51)
[2021-11-06 04:28] LABS: Basophils Percent Auto 0.5 % (0.2-1.2); Hematocrit 27.7 % (37.0-47.0); Hemoglobin 8.8 g/dL (12.0-15.0); Immature Granulocyte Absolute 0.08 K/mm3 (0.00-0.031); Lymphocytes Absolute Auto 0.33 K/mm3 (0.9-3.2); Lymphocytes Percent Auto 4.3 % (18.3-44.2); Mean Corpuscular HGB Conc 31.8 g/dl (32-36); Mean Corpuscular Hemoglobin 31.3 pg (26-34); Mean Corpuscular Volume 98.6 fl (80-100); Mean Platelet Volume 12.1 fl (7.4-10.4); Monocytes Percent Auto 0.3 % (2.6-8.5); Neutrophils Absolute Auto 7.2 K/mm3 (1.3-6.7); Neutrophils Percent Auto 93.9 % (45.5-73.1); Nucleated Red Blood Cells Absolute Auto 0.3 K/mm3 (0.0-0.012); Nucleated Red Blood Cells Perc 3.6 % (0.0-0.2); Platelet Count Result 237 k/mm3 (150-375); Red Blood Count 2.81 M/mm3 (4.2-5.4); Red Cell Distribution Width 18.9 % (11.5-14.5); White Blood Count 7.7 K/mm3 (4.5-10.0)
[2021-11-06 04:42] LABS: Alanine Aminotransferase 25 U/L (6-35); Albumin Level 2.4 g/dL (3.5-5.1); Alkaline Phosphatase 71 U/L (38-126); Anion Gap 7 mmol/L (8-16); Aspartate Amino Transferase 34 U/L (14-36); Bilirubin,Total 0.2 mg/dL (0.2-1.3); Blood Urea Nitrogen 24 mg/dL (7-17); Calcium 6.5 mg/dL (8.4-10.2); Carbon Dioxide 25 mmol/L (22-30); Chloride 100 mmol/L (98-107); Estimated CRCL calculation 37 ml/min; Estimated Glomerular Filt Rate 55; Glucose 99 mg/dL (65-110); Magnesium 2.2 mg/dL (1.6-2.3); Potassium 4.4 mmol/L (3.4-5.0); Sodium 132 mmol/L (137-145)
[2021-11-06 05:01] LABS: Anisocytosis 1+ (NORMAL); Platelet Estimate Adequate (Adequate); Poikilocytosis 1+ (NORMAL)
[2021-11-06 05:07] LABS: Schistocytes 1+ (NORMAL)
[2021-11-06 06:02] LABS: Alveolar/Arterial O2 Gradient 606.5 mmHg; Base Excess ABG -0.2 mEq/l (+/-2.0); Fractional Inspired Oxygen 100 %; HCO3 ABG 22.9 mEq/l (22.0-26.0); Oxygen Content ABG 12.2 %vol (16.0-22.0); Oxygen Saturation ABG 96.1 % (95.0-100.0); Oxyhemoglobin 93.3 % THb (90.0-100.0); PCO2 ABG 31.5 mmHg (35.0-45.0); PO2 FiO2 Ratio Arterial Blood 0.75 %; Site Drawn RIGHT BRACHIAL; Total Hemoglobin 9.2 g/dL (12.0-18.0)
[2021-11-06 06:03] LABS: Device HIGH FLOW THERAPY
--- NOTE | 2021-11-06 08:08 | PC.NURSE ---
Patient consented to PICC line insertion. Consent is signed and on front of chart. PICC nurse has need notified. PICC nurse should be available by 09:30.
[2021-11-06] MEDS: ASPIRIN 81 MG ENTERIC TABLET PO (08:23)
[2021-11-06] MEDS: FOLIC ACID 1 MG TABLET PO (08:23)
[2021-11-06] MEDS: SIMVASTATIN 20 MG TABLET PO (08:23)
[2021-11-06] MEDS: ESCITALOPRAM OXALATE 10 MG TABLET PO (08:23)
[2021-11-06] MEDS: methylPREDNISolone SOD SUCC 40 MG VIAL IV PUSH ×2 (08:23→19:56)
[2021-11-06] MEDS: PANTOPRAZOLE SODIUM IV 40 MG VIAL IV PUSH (08:23)
[2021-11-06] MEDS: ENOXAPARIN 60 MG/0.6 ML SYRINGE 50 MG SUB-Q ×2 (08:24→19:57)
[2021-11-06 08:33] LABS: Glucose Point of Care 89 mg/dl (65-105)
[2021-11-06] MEDS: TIMOLOL MALEATE 0.5% OP SOLN 5 ML BOTTLE 1 DROP EACH EYE ×2 (08:42→19:57)
[2021-11-06] MEDS: FUROSEMIDE INJ 40 MG/4 ML VIAL IV PUSH ×2 (08:43→17:27)
[2021-11-06] MEDS: FERROUS SULFATE 324 MG TABLET PO (08:43)
[2021-11-06] MEDS: CALCIUM GLUC 2,000 MG/NS 100ML 2,000 MG/100 ML BAG 100 MG IVPB (08:43)
[2021-11-06] MEDS: MAGNESIUM OXIDE 400 MG TABLET PO ×2 (08:50→17:27)
--- NOTE | 2021-11-06 08:51 | WPDINTPN ---
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 She has a small PE on her CTA scan Her clinical picture also suggest component congestive heart failure with elevated BNP, edema in light, orthopnea She may also have another bacterial infection ARDS is also in differential diagnosis Patient is currently on Airvo 90% FiO2 and 60 L flow. Reviewed chest x-ray this morning ABG Blood cultures have been sent. Procalcitonin level is low at 0.3. WBCs normal. She is afebrile Continue Empiric vancomycin and cefepime Continue IV Bactrim for PJP pneumonia Continue HSV and CMV treatment with valacyclovir Consulted pulmonary. We do not have infectious disease or rheumatology consultation available here at [facility] Continue IV methylprednisolone, Bronchodilators Continue Lasix She continues to be at risk of requiring intubation and mechanical ventilation in case her respiratory status deteriorates Continue Lovenox subQ for PE (2) Pneumonia: Code(s): J18.9 - Pneumonia, unspecified organism Status: Acute Assessment and Plan: See above (3) Pulmonary edema: Code(s): J81.1 - Chronic pulmonary edema Status: Acute Assessment and Plan: Echocardiogram Summary ? 1. Complete two-dimensional, color flow and Doppler transthoracic echocardiogram is performed. ? 2. Normal left ventricular size with good contractility of all segments. Mild septal hypertrophy noted. ? Ejection fraction 65-70%.? Grade 2 diastolic dysfunction is present.? Mild septal hypertrophy is noted.? Global longitudinal strain is-17%, borderline. ? 3. There is mild mitral valve regurgitation. ? 4. No pulmonary hypertension, estimated pulmonary arterial systolic pressure is 33 mmHg. ? 5. Normal sinus rhythm. (4) Pulmonary embolism: Code(s): I26.99 - Other pulmonary embolism without acute cor pulmonale Status: Acute Assessment and Plan: She has a small PE. Lower extremity Dopplers ordered and preliminary suggests that there may be DVT in the left leg Continue Lovenox subQ Reviewed echocardiogram Lower extremity Dopplers showed left femoral vein DVT (5) Pneumocystis jiroveci pneumonia: Code(s): B59 - Pneumocystosis Status: Acute Assessment and Plan: See above (6) Elevated troponin: Code(s): R77.8 - Other specified abnormalities of plasma proteins Status: Acute Assessment and Plan: Patient has elevated troponin but denies any chest pain and EKG does not show any ST elevation This is likely type 2 non STEMI from her respiratory failure, PE and infection She is already anticoagulated. Continue aspirin. Hold beta-courtney due to soft blood pressure (7) Congestive heart failure: Code(s): I50.9 - Heart failure, unspecified Status: Acute Assessment and Plan: Echo reviewed Continue Lasix IV (8) HSV (herpes simplex virus) infection: Code(s): B00.9 - Herpesviral infection, unspecified Status: Acute Assessment and Plan: See above (9) CMV infection: Code(s): B25.9 - Cytomegaloviral disease, unspecified Status: Acute Assessment and Plan: See above (10) Diverticulitis: Code(s): K57.92 - Diverticulitis of intestine, part unspecified, without perforation or abscess without bleeding Status: Acute Assessment and Plan: Patient had diverticulitis in July requiring colectomy and co
[2021-11-06] MEDS: LIDOCAINE HCL 1% PF INJ 5 ML VIAL INFILTRATE (09:20)
--- NOTE | 2021-11-06 11:52 | PM.CNPUL ---
Assessment and Plan Assessment and plan (1) Pneumonia: Code(s): J18.9 - Pneumonia, unspecified organism Status: Acute Assessment and Plan: 75-year-old woman with giant cell arteritis on 40 mg of prednisone a day and methotrexate 20 mg once a week last dose on 11/04/2021 found to have a CT scan on 10/28 by report that demonstrated pneumonia and a bronchoscopy on 11/02/2021 at [facility] with the isolation of PJP, CMV and HSV. She was discharged on 11/03/2021 on no oxygen, Bactrim 2 tablets p.o. t.i.d., valganciclovir 900 mg p.o. b.i.d.. I have no records from [facility] admission just a patient summary discharge. Patient was referred to [facility] from [facility] ED on 11/05 given her recent hospitalization there as well his her complex pulmonary and rheumatologic issues requiring consultation from Infectious Disease and Rheumatology specialists which are not available at [facility]. Patient developed worsening shortness of breath and now has acute hypoxic respiratory failure with diffuse interstitial and alveolar infiltrates on her CT scan as well as a right lower lobe PE and left femoral vein DVT. Elevated BNP with grade 2 diastolic dysfunction on echo. COVID RT PCR negative, influenza swab negative, low procalcitonin. Etiology includes PJP pneumonia that failed p.o. Bactrim, CMV pneumonitis, HSV pneumonia, fluid overload, PE, and or hospital acquired pneumonia. Regarding PJP, I recommend increasing the Septra dose from 15 to 20 milligrams/kilos per day. continue Solu-Medrol 40 mg IV q.12 hours. The patient may have CMV pneumonitis and will be placed on oral Roya ganciclovir 900 mg p.o. b.i.d. from home as IV ganciclovir or oral valganciclovir are not available in our hospital. I will send blood for CMV PCR. The patient was not discharged on treatment for HSV such as acyclovir, Valacyclovir or famciclovir from [facility] and I assuming that it was felt this was not an active HSV infection. I am waiting medical records from [facility]. Patient has received IV Lasix for fluid overload. Patient is currently on Lovenox 1 milligram/kilos subcu b.i.d. for her pulmonary embolism. I agree with vancomycin and cefepime regarding the possibility of a hospital-acquired pneumonia. Discussed with Dr. Nava (2) Acute respiratory failure with hypoxia: Code(s): J96.01 - Acute respiratory failure with hypoxia Status: Acute Plan Patient presented with acute hypoxemic respiratory failure related to the issues listed above. 11/05 07:53: ABG of 7.49/26/108 on BiPAP 10/5 with 80%. Could not tolerate BiPAP. 11/05 20:00 Airvo 60 L 95% FIO2 sats 94% 11/06 03:25 Airvo 60 L 95% FIO2 sats 94% plus 15 L NRB sats 94% 11/06 05:33 Airvo 60 L 95% FIO2 sats 94% plus 15 L NRB sats 94% with ABG 7.48/32/75 11/06 09:00 Airvo 60 L 95% FIO2 sats 94% plus 15 L NRB sats 92% Patient may require mechanical ventilation and this is acceptable per the patient's wishes. History of Present Illness History of Present Illness Consult date: 11/06/21 Chief complaint: pneumonia Narrative: 11/06/2021: This is a new pulmonary consult for pneumonia and hypoxemic respiratory failure. I obtained this history from the patient, her daughter Mara, a discharge summary from [facility] and healthcare providers at [facility]. 71-year-old woman With giant cell arteritis, recent PE YAMILA, CMV and HSV isolated from bronchoscopy at [facility] on 11/02/2021. Patient started having stomach issues and diarrhea in April of 2021. She apparently was diagnosed with diverticulitis. In June of 2021 she developed changes with her eyes and ultimately had a temporal artery biopsy and was diagnosed with giant cell arteritis and initiated on prednisone. With a history of I issues in June of 2021. Patient had what sounds like a temporal artery biopsy and was told she had giant cell arteritis and was placed on prednisone.
[2021-11-06 12:02] LABS: Glucose Point of Care 192 mg/dl (65-105)
[2021-11-06] MEDS: CENTRAL LINE FLUSH 10 ML IV PUSH ×2 (15:25→19:57)
[2021-11-06 16:16] LABS: Glucose Point of Care 184 mg/dl (65-105)
[2021-11-06] MEDS: LORazepam INJ (*CRX) 2 MG/ML VIAL 0.5 MG IV PUSH (20:28)
[2021-11-06 22:02] LABS: Glucose Point of Care 104 mg/dl (65-105)
[2021-11-06 23:52] LABS: Glucose Point of Care 127 mg/dl (65-105)
[2021-11-07] VITALS (35 sets, daily range): BP systolic 78–129; BP diastolic 50–74; PULSE 61–108; RESP 17–30; TEMP 36.4–37; O2SAT 93–100
[2021-11-07] MEDS: ALBUTEROL SULFATE NEB 2.5 MG/3 ML INH INHALATION ×2 (03:06→07:57)
[2021-11-07] MEDS: IPRATROPIUM BR 0.02% INH SOLN 0.5 MG/2.5 ML VIAL INHALATION ×2 (03:06→07:57)
[2021-11-07 04:26] LABS: Glucose Point of Care 190 mg/dl (65-105)
[2021-11-07] MEDS: CENTRAL LINE FLUSH 10 ML IV PUSH ×2 (04:58→13:59)
[2021-11-07 05:13] LABS: Basophils Percent Auto 0.2 % (0.2-1.2); Hematocrit 25.6 % (37.0-47.0); Hemoglobin 8.3 g/dL (12.0-15.0); Immature Granulocyte Absolute 0.12 K/mm3 (0.00-0.031); Immature Granulocyte Percent A 1.3 % (0-0.5); Lymphocytes Absolute Auto 0.34 K/mm3 (0.9-3.2); Lymphocytes Percent Auto 3.7 % (18.3-44.2); Mean Corpuscular HGB Conc 32.4 g/dl (32-36); Mean Corpuscular Hemoglobin 31.3 pg (26-34); Mean Corpuscular Volume 96.6 fl (80-100); Mean Platelet Volume 12.6 fl (7.4-10.4); Monocytes Percent Auto 0.2 % (2.6-8.5); Neutrophils Absolute Auto 8.6 K/mm3 (1.3-6.7); Neutrophils Percent Auto 94.6 % (45.5-73.1); Nucleated Red Blood Cells Absolute Auto 0.3 K/mm3 (0.0-0.012); Nucleated Red Blood Cells Perc 3.4 % (0.0-0.2); Platelet Count Result 260 k/mm3 (150-375); Red Blood Count 2.65 M/mm3 (4.2-5.4); Red Cell Distribution Width 17.9 % (11.5-14.5); White Blood Count 9.1 K/mm3 (4.5-10.0)
[2021-11-07 05:29] LABS: Alanine Aminotransferase 23 U/L (6-35); Albumin Level 2.4 g/dL (3.5-5.1); Alkaline Phosphatase 74 U/L (38-126); Anion Gap 11 mmol/L (8-16); Aspartate Amino Transferase 32 U/L (14-36); Bilirubin,Total 0.2 mg/dL (0.2-1.3); Blood Urea Nitrogen 21 mg/dL (7-17); Calcium 6.7 mg/dL (8.4-10.2); Carbon Dioxide 25 mmol/L (22-30); Chloride 90 mmol/L (98-107); Estimated CRCL calculation 34 ml/min; Estimated Glomerular Filt Rate 55; Glucose 162 mg/dL (65-110); Magnesium 1.9 mg/dL (1.6-2.3); Potassium 4.2 mmol/L (3.4-5.0); Sodium 126 mmol/L (137-145)
[2021-11-07 07:55] LABS: Glucose Point of Care 103 mg/dl (65-105)
--- NOTE | 2021-11-07 08:21 | PC.NURSE ---
Patient became extremely confused and agitated after dose of Ativen. Dr. Nava Discontinued order.
--- NOTE | 2021-11-07 08:34 | WPDINTPN ---
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 She has a small PE on her CTA scan Her clinical picture also suggest component congestive heart failure with elevated BNP, edema in light, orthopnea She may also have another bacterial infection ARDS is also in differential diagnosis Patient is currently on BiPAP with 70% FiO2. I have decreased FiO2 to 65%. I will continue Airvo during the day and BiPAP p.r.n. and at night for positive pressure ventilation Reviewed chest x-ray this morning ABG Blood cultures have been sent and are negative till now Procalcitonin level is low at 0.3. WBCs normal. She is afebrile Continue Empiric vancomycin and cefepime Continue IV Bactrim for PJP pneumonia. Was adjusted as per Pulmonary recommendations Continue HSV and CMV treatment with valacyclovir patient is taking her home Valcyte pills Pulmonary following. We do not have infectious disease or rheumatology consultation available here at [facility]. It is awaiting transfer to [facility] Continue IV methylprednisolone, Bronchodilators Continue Lasix but decrease dose She continues to be at risk of requiring intubation and mechanical ventilation in case her respiratory status deteriorates Continue Lovenox subQ for PE (2) Pneumonia: Code(s): J18.9 - Pneumonia, unspecified organism Status: Acute Assessment and Plan: See above (3) Pulmonary edema: Code(s): J81.1 - Chronic pulmonary edema Status: Acute Assessment and Plan: Echocardiogram Summary ? 1. Complete two-dimensional, color flow and Doppler transthoracic echocardiogram is performed. ? 2. Normal left ventricular size with good contractility of all segments. Mild septal hypertrophy noted. ? Ejection fraction 65-70%.? Grade 2 diastolic dysfunction is present.? Mild septal hypertrophy is noted.? Global longitudinal strain is-17%, borderline. ? 3. There is mild mitral valve regurgitation. ? 4. No pulmonary hypertension, estimated pulmonary arterial systolic pressure is 33 mmHg. ? 5. Normal sinus rhythm. (4) Pulmonary embolism: Code(s): I26.99 - Other pulmonary embolism without acute cor pulmonale Status: Acute Assessment and Plan: She has a small PE. Lower extremity Dopplers ordered and preliminary suggests that there may be DVT in the left leg Continue Lovenox subQ Reviewed echocardiogram Lower extremity Dopplers showed left femoral vein DVT (5) Pneumocystis jiroveci pneumonia: Code(s): B59 - Pneumocystosis Status: Acute Assessment and Plan: See above (6) Elevated troponin: Code(s): R77.8 - Other specified abnormalities of plasma proteins Status: Acute Assessment and Plan: Patient has elevated troponin but denies any chest pain and EKG does not show any ST elevation This is likely type 2 non STEMI from her respiratory failure, PE and infection She is already anticoagulated. Continue aspirin. Hold beta-courtney due to soft blood pressure (7) Congestive heart failure: Code(s): I50.9 - Heart failure, unspecified Status: Acute Assessment and Plan: Echo reviewed Continue Lasix IV (8) HSV (herpes simplex virus) infection: Code(s): B00.9 - Herpesviral infection, unspecified Status: Acute Assessment and Plan: See above (9) CMV infection: Code(s): B25.9 - Cytomegaloviral disease, unspecified Stat
--- NOTE | 2021-11-07 09:25 | PM.PNPUL ---
Progress Note: A&P Assessment and Plan (1) Pneumonia: Code(s): J18.9 - Pneumonia, unspecified organism Status: Acute Assessment and Plan: 75-year-old woman with giant cell arteritis on 40 mg of prednisone a day and methotrexate 20 mg once a week last dose on 11/04/2021 found to have a CT scan on 10/28 by report that demonstrated pneumonia and a bronchoscopy on 11/02/2021 at [facility] with the isolation of PJP, CMV and HSV. She was discharged on 11/03/2021 on no oxygen, Bactrim 2 tablets p.o. t.i.d., valganciclovir 900 mg p.o. b.i.d.. I have no records from [facility] admission just a patient summary discharge. Patient was referred to [facility] from ther ED on 11/05 given her recent hospitalization there as well his her complex pulmonary and rheumatologic issues requiring consultation from Infectious Disease and Rheumatology specialists which are not available at [facility]. Patient developed worsening shortness of breath and now has acute hypoxic respiratory failure with diffuse interstitial and alveolar infiltrates on her CT scan as well as a right lower lobe PE and left femoral vein DVT. Elevated BNP with grade 2 diastolic dysfunction on echo. COVID RT PCR negative, influenza swab negative, low procalcitonin. Etiology includes PJP pneumonia that failed p.o. Bactrim, CMV pneumonitis, HSV pneumonia, fluid overload, PE, and or hospital acquired pneumonia. 11/06 Regarding PJP, I recommend increasing the Septra dose from 15 to 20 milligrams/kilos per day. continue Solu-Medrol 40 mg IV q.12 hours. The patient may have CMV pneumonitis and will be placed on oral Roya ganciclovir 900 mg p.o. b.i.d. from home as IV ganciclovir or oral valganciclovir are not available in our hospital. I will send blood for CMV PCR. The patient was not discharged on treatment for HSV such as acyclovir, Valacyclovir or famciclovir from [facility] and I assuming that it was felt this was not an active HSV infection. I am waiting medical records from [facility]. Patient has received IV Lasix for fluid overload. Patient is currently on Lovenox 1 milligram/kilos subcu b.i.d. for her pulmonary embolism. I agree with vancomycin and cefepime regarding the possibility of a hospital-acquired pneumonia. 11/07 The patient was placed on BiPAP 12/6 and 70% last night. Approximately 9 hours she was switched to high-flow nasal cannula and when I walked into the room she was on 60 L 91% FiO2 with saturations 99%. The patient looks more comfortable in said she was breathing better. The patient had a bloody left nares and I decreased her to 40 L high-flow and 84% FiO2 and her saturations were 91%. White blood cell count is 9.1, creatinine is 1.0, chest x-ray on BiPAP demonstrated improved diffuse interstitial and alveolar infiltrates. The patient told me her vision had improved. overall she has improved. Agree with current doses of Septra and Solu-Medrol for PJP, valganciclovir for CMV, blood cm be assay is pending, vanc and cefepime for the possibility of a possible acquired pneumonia. Patient has bleeding of the left narrow but I would continue Lovenox 1 milligram/kilos b.i.d. Discussed with Dr. Nava (2) Acute respiratory failure with hypoxia: Code(s): J96.01 - Acute respiratory failure with hypoxia Status: Acute Plan Patient presented with acute hypoxemic respiratory failure related to the issues listed above. 11/05 07:53: ABG of 7.49//108 on BiPAP 10/5 with 80%. Could not tolerate BiPAP. 11/05 20:00 Airvo 60 L 95% FIO2 sats 94% 11/06 03:25 Airvo 60 L 95% FIO2 sats 94% plus 15 L NRB sats 94% 11/06 05:33 Airvo 60 L 95% FIO2 sats 94% plus 15 L NRB sats 94% with ABG 7.48/32/75 11/06 09:00 Airvo 60 L 95% FIO2 sats 94% plus 15 L NRB sats 92% 11/06 20:00 BiPAP RR18, 12/6, 70% sats 99% 11/07 9:00 Airvo 40 L 84% FIO2, sats 94% goal saturation 90-94% Patient may require mechanical ventilation and th
[2021-11-07] MEDS: CALCIUM GLUC 2,000 MG/NS 100ML 2,000 MG/100 ML BAG 100 MG IVPB (09:35)
[2021-11-07] MEDS: TIMOLOL MALEATE 0.5% OP SOLN 5 ML BOTTLE 1 DROP EACH EYE (10:10)
[2021-11-07] MEDS: methylPREDNISolone SOD SUCC 40 MG VIAL IV PUSH (10:12)
[2021-11-07] MEDS: PANTOPRAZOLE SODIUM IV 40 MG VIAL IV PUSH (10:12)
[2021-11-07] MEDS: ASPIRIN 81 MG ENTERIC TABLET PO (10:12)
[2021-11-07] MEDS: FERROUS SULFATE 324 MG TABLET PO (10:12)
[2021-11-07] MEDS: SIMVASTATIN 20 MG TABLET PO (10:12)
[2021-11-07] MEDS: FOLIC ACID 1 MG TABLET PO (10:12)
[2021-11-07] MEDS: ESCITALOPRAM OXALATE 10 MG TABLET PO (10:13)
[2021-11-07] MEDS: ENOXAPARIN 60 MG/0.6 ML SYRINGE 50 MG SUB-Q (10:13)
[2021-11-07] MEDS: MAGNESIUM OXIDE 400 MG TABLET PO (10:14)
[2021-11-07] MEDS: FUROSEMIDE INJ 40 MG/4 ML VIAL IV PUSH (10:22)
[2021-11-07] MEDS: ONDANSETRON INJ 4 MG/2 ML VIAL IV PUSH (10:34)
[2021-11-07 10:46] LABS: Glucose Point of Care 257 mg/dl (65-105)
--- NOTE | 2021-11-07 10:48 | PCDIET ---
After taking PO meds, including iron, Patient became nauseous and had small amount of green emesis. Gave Zophran and patient stated she felt much better.
[2021-11-07] MEDS: ETOMIDATE 20 MG/10 ML AMPUL IV PUSH (12:08)
[2021-11-07] MEDS: MIDAZOLAM 100MG/NS 100ML(*CRX) 100 MG/100 ML BAG IV CONT (12:09)
[2021-11-07] MEDS: SUCCINYLCHOLINE CHLORIDE 20 MG/ML 10 ML VIAL 100 MG IV PUSH (12:09)
[2021-11-07] MEDS: FENTANYL 2,500MCG/NS250ML(*CRX 2,500 MCG/250 ML BAG IV CONT (12:09)
[2021-11-07] MEDS: MIDAZOLAM HCL (*CRX) 2 MG/2 ML VIAL IV PUSH ×2 (12:10)
--- NOTE | 2021-11-07 12:18 | P.PNCROSS_ITS ---
Event Note Event Note Event Note: Throughout the day patient became more and more anxious and tachypneic. She de saturated on Airvo. She was also complaining of nausea and had vomiting earlier this could not be placed on BiPAP. Patient's saturation was in 80s and she was using accessory muscles with respiratory distress. Decision was made to intubate the patient and she and her daughter was at bedside were agreeable. Patient was intubated without any complications and placed on mechanical ventilation. Chest x-ray reviewed. ABG pending. Will start tube feeding
--- NOTE | 2021-11-07 12:19 | P.PCNBED_ITS ---
Procedures Intubation Intubation Date: 11/07/21 Intubation Time: 11:45 Consent: Verbal consent was obtained from patient and patient's daughter who was at bedside A pre-procedural Time-Out was completed immediately before starting the proced ure and confirmed: Patient Identification, Site, Procedure, Patient Position and the Availability of Requisite Equipment: Yes Sedative: etomidate Mg given: 20 Paralytic: succinylcholine Mg given: 100 Laryngoscope: fiber optic video scope Assist device used: fiber optic device ET tube size: 7.5 Tube secured depth (cm): 23 Tube secured location: lips Tube placement confirmation: visualized tube passing through cords, equal breath sounds bilaterally, no breath sounds over epigastrium and confirmation by capnometry Patient tolerated procedure: well Intubation complications: none
[2021-11-07 13:26] LABS: Carboxyhemoglobin 0.3 % THb (0-2.0); Fractional Inspired Oxygen 100 %; HCO3 ABG 20.3 mEq/l (22.0-26.0); Oxygen Content ABG 12.8 %vol (16.0-22.0); Oxygen Saturation ABG 99.5 % (95.0-100.0); Oxyhemoglobin 97.3 % THb (90.0-100.0); PCO2 ABG 33.6 mmHg (35.0-45.0); PO2 ABG 227.4 mmHg (80.0-100.0); PO2 FiO2 Ratio Arterial Blood 2.27 %; Reduced Hemoglobin 1.4 %THb (0-5.0); Total Hemoglobin 8.9 g/dL (12.0-18.0); pH ABG 7.398 (7.350-7.450)
[2021-11-07 13:27] LABS: Device VENTILATOR; Modified Allen's Test Pass; Site Drawn LEFT RADIAL
[2021-11-07 13:28] LABS: Arterial Blood Gas Vent Mode CMV; Arterial Blood Gas Ventilator rate 22 /MIN
[2021-11-07 13:29] LABS: Arterial Blood Gas PEEP 8 cmH2O; Arterial Blood Gas Tidal Volume 320 ml
[2021-11-07] MEDS: NOREPINEPHRINE 8 MG/D5W 250 ML 8 MG/250 ML BAG 9.38 MG IV CONT (13:55)
[2021-11-07 15:35] LABS: Glucose Point of Care 228 mg/dl (65-105)
--- NOTE | 2021-11-07 17:18 | PC.NURSE ---
[facility] Room 8420. Gave report to Saurabh AGUILERA. Family notified. gave verbal consent over the phone. Witness by Gem AGUILERA.
--- NOTE | 2021-11-07 18:51 | PC.NURSE ---
[facility] Picked patient up, Notified family and recieving WILLY Wiley.
[2021-11-08 20:38] LABS: CMV DNA Quant PCR IU/mL 2670 IU/mL; Cytomegalovirus DNA Quant PCR 3.43 log IU/mL; Cytomegalovirus DNA Source Whole Blood
--- NOTE | 2021-11-20 11:50 | PM.TDS ---
Transfer Discharge Sum: Prov Provider Date of admission: 11/05/21 09:31 Primary care physician: Petey Messer MD Admitting clinician: Magdaleno Guy MD Consults: 11/05/21 Consult to Physician Routine Comment: Consulting Provider: Bruno De La Paz machine scallop cutter/MD group to consult: Pulmonary Reason for consultation: PJP, HSV CMV Pneumonia Has provider been notified: Yes DS: Admitting Diagnosis Discharge Date 11/07/21 Admitting Diagnosis Acute respiratory failure DS: Discharge Diagnosis Discharge Diagnosis (1) Acute respiratory failure with hypoxia: Code(s): J96.01 - Acute respiratory failure with hypoxia Status: Acute (2) HSV (herpes simplex virus) infection: Code(s): B00.9 - Herpesviral infection, unspecified Status: Acute (3) CMV infection: Code(s): B25.9 - Cytomegaloviral disease, unspecified Status: Acute (4) Pneumocystis jiroveci pneumonia: Code(s): B59 - Pneumocystosis Status: Acute (5) Pulmonary edema: Code(s): J81.1 - Chronic pulmonary edema Status: Acute (6) Pulmonary embolism: Code(s): I26.99 - Other pulmonary embolism without acute cor pulmonale Status: Acute (7) Congestive heart failure: Code(s): I50.9 - Heart failure, unspecified Status: Acute (8) Elevated troponin: Code(s): R77.8 - Other specified abnormalities of plasma proteins Status: Acute (9) Diverticulitis: Code(s): K57.92 - Diverticulitis of intestine, part unspecified, without perforation or abscess without bleeding Status: Acute Transfer Discharge Sum: Med Medications Active and Home Medications: Home Medications alprazolam 0.25 mg tablet 0.25 mg PO DAILY PRN Anxiety 11/05/21 [History Confirmed 11/05/21] aspirin 81 mg capsule 81 mg PO DAILY 11/05/21 [History Confirmed 11/05/21] calcium carbonate 500 mg-vitamin D3 5 mcg (200 unit) tablet 1 tablet PO DAILY 11/05/21 [History Confirmed 11/05/21] escitalopram oxalate 10 mg tablet 10 mg PO DAILY 11/05/21 [History Confirmed 11/05/21] ferrous sulfate 325 mg (65 mg iron) tablet (FeroSul) 325 mg PO DAILY 11/05/21 [History Confirmed 11/05/21] folic acid 1 mg tablet 1 mg PO DAILY 11/05/21 [History Confirmed 11/05/21] furosemide 20 mg tablet 20 mg PO DAILY 11/05/21 [History Confirmed 11/05/21] insulin glargine-yfgn 100 unit/mL (3 mL) subcutaneous pen (Semglee (insulin glargine-yfgn) Pen) 7 unit subcut HS 11/05/21 [History Confirmed 11/05/21] magnesium oxide 400 mg (241.3 mg magnesium) tablet 400 mg PO BID 11/05/21 [History Confirmed 11/05/21] metformin 500 mg tablet 1,000 mg PO BID 11/05/21 [History Confirmed 11/05/21] metoprolol succinate 25 mg tablet,extended release 24 hr 12.5 mg PO DAILY 11/05/21 [History Confirmed 11/05/21] pantoprazole 40 mg tablet,delayed release 40 mg PO QAM 11/05/21 [History Confirmed 11/05/21] potassium chloride 10 mEq capsule,extended release 10 meq PO DAILY 11/05/21 [History Confirmed 11/05/21] prednisone 10 mg tablet 35 mg PO DAILY 11/05/21 [History Confirmed 11/05/21] ramelteon 8 mg tablet 8 mg PO HS PRN Insomnia 11/05/21 [History Confirmed 11/05/21] simvastatin 20 mg tablet 20 mg PO HS 11/05/21 [History Confirmed 11/05/21] sulfamethoxazole 800 mg-trimethoprim 160 mg tablet 2 tablet PO TID 11/05/21 [History Confirmed 11/05/21] timolol 0.5 % eye drops 1 drp EACH EYE BID 11/05/21 [History Confirmed 11/05/21] valganciclovir 450 mg tablet 900 mg PO BID 11/05/21 [History Confirmed 11/05/21] Transfer Discharge Sum: Hosp Hospital Course Hospital course: Megha Humphreys is a 71 year old female who is a poor historian and was accompanied by her who was also poor historian presented to ER with chief complaint of shortness of breath.? Patient was discharged from [facility] 2 days before after treatment for a pneumonia and not feeling well as per her .? 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
== END 2021-11-07 16:45 | disposition short-term general hospital (02) | DRG 208 ==
LOC: ANHED 08:14 → ANHICU 09:55
PROVIDERS: Internal Medicine; Internal Medicine Pulmonary Disease; Admitting Provider Internal Medicine; Emergency Provider Emergency Medicine; PCP Family Medicine; Visit Provider Internal Medicine
DX: J96.01 Acute respiratory failure with hypoxia; J18.9 Pneumonia, unspecified organism; I26.99 Other pulmonary embolism without acute cor pulmonale; B59 Pneumocystosis; B25.9 Cytomegaloviral disease, unspecified; J81.1 Chronic pulmonary edema; I82.412 Acute embolism and thrombosis of left femoral vein; I50.9 Heart failure, unspecified; B00.9 Herpesviral infection, unspecified; Z20.822 Contact with and (suspected) exposure to COVID-19; R77.8 Other specified abnormalities of plasma proteins; F41.8 Other specified anxiety disorders; E11.9 Type 2 diabetes mellitus without complications; Z87.19 Personal history of other diseases of the digestive system; Z90.49 Acquired absence of other specified parts of digestive tract; Z93.3 Colostomy status; Z79.4 Long term (current) use of insulin; Z79.84 Long term (current) use of oral hypoglycemic drugs; Z79.899 Other long term (current) drug therapy
CPT/HCPCS: 36415; 36569; 36600; 51701; 71045; 71275; 74176; 80048; 80053; 81003; 82375; 82805; 82948; 83050; 83605; 83690; 83735; 83880; 84145; 84484; 85025; 85610; 85730; 87040; 87497; 87502; 93005; 93306; 93970; 94002; 94003; 94640; 99291; A9270; C1751; C9113; C9803; J0330; J0610; J0692; J1650; J1815; J1940; J2060; J2250; J2405; J2920; J3010; J3370; J7040; J7060; Q9967; U0003; U0005